=== PATIENT | male | born 1940 | race Caucasian/White ===

== ENCOUNTER → 2017-04-07 | Outpatient (CLI) | payer MEDICARE, BC ==
[~2017-04-07] MED LIST: ADVAIR 100-501 EAC1 IH; ADVAIR HFA 230/12 GM; ALLEGRA; ALPRAZOLAM; AMBIEN CR; ANUSOL-HC21 GM PR; ASPIRIN; ASPIRIN81 MG PO; AVODART0.5 MG PO; BENTYL PO; DIOVAN; FLOMAX0.4 M1 PO; FLOMAX0.4 MG; GLUCOPHAGE500 MG PO; LASIX PO; LEVBID; LIPITOR; LOPID600 MG PO; NEXIUM; NEXIUM PO; PANTOPRAZOLE SO40 MG PO; PERCOCET10; PLAVIX; PLAVIX PO; PREPARATION H C26 GM RC; PROTONIX PO; SINGULAIR; SKELAXIN; ST. JOSEPH ASP325 MG PO; SYMBICORT80 INH; TOPROL XL 50 MG50 MG PO; TYLENOL PM PO; XANAX1 MG PO; [UNRECOGNIZED DRUG - OTHER]; [UNRECOGNIZED DRUG - OTHER] PO; [UNRECOGNIZED DRUG - REMARK]
--- NOTE | ~2017-04-07 | CT2 ---
[facility] A Service of [facility] & [facility] RADIOLOGY TEXT RESULTS PATIENT: EDIL RIVERA [facility] UNIT #: [id number] AGE: [address]: Oc Rg MD SEX: M ORDER DR: [id number] [facility] [address] [place], [place] [address] [id number] O MR#: [id number] Acc #: [id number] NAME: EDIL RIVERA. : 1940 SEX: M STUDY DATE/TIME: 04/07/2017 13:40 UNIT: CCAT ROOM: STUDY DESCRIPTION: CT Abd and Pelv W Cont Attending Physician: Oc Rg Jr., M.D. Referring Physician: Oc Rg Jr., M.D. Ordering Physician: Oc Rg Jr., M.D. Primary Care Physician: Diya Menjivar M.D. MEDICAL IMAGING REPORT This report is preliminary unless electronic signature is present EXAM CT of the abdomen and pelvis with IV contrast media DATE OF STUDY: 04/07/2017 COMPARISON 01/18/2016 HISTORY Inflammatory bowel syndrome with abdominal pain, constipation, difficulty swallowing for 1 year. TECHNIQUE Axial imaging of the abdomen and pelvis was performed with IV contrast and compared directly to a prior scan of 01/18/2016. This CT exam was performed with one or more of the following radiation dose reduction techniques: automatic exposure control, adjustment of mA and/or kV according to patient size, and iterative reconstruction. FINDINGS Lung bases are stable and unremarkable. Scans through the liver parenchyma suggest at least mild hepatic steatosis. There is a calcified lesion within the spleen, unchanged from prior study measuring about 18 mm in size. It appears benign. Gallbladder is absent. Pancreas is normal and the adrenal glands are normal. The right and left kidney are normal. There is colonic diverticulosis. Small bowel appears normal. The distal and terminal ileum are normal. The appendix is not identified. No pelvic masses or fluid collections are seen. 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 The patient does have degenerative changes in the lumbar spine with a [facility] A Service of [facility] & [facility] RADIOLOGY TEXT RESULTS PATIENT: EDIL RIVERA LOCATION: [facility] : 42 UNIT #: [id number] AGE: [address]: Oc Rg MD SEX: M ORDER DR: chronic compression deformity of L3 and marked calcifications of the L3-4 intervertebral disc. CONCLUSION 1. Hepatic steatosis. 2. Status post cholecystectomy. 3. Colonic diverticulosis. 4. Nonvisualization of the appendix. It may have been removed. 5. 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 Dictated by... Job Montanez M.D. THIS IS AN ELECTRONICALLY VERIFIED REPORT Job Montanez M.D. at 04/13/2017 7:15 AM REESE/clarisa TD: 04/09/2017 20:25 JOB #: [id number] MEDICAL IMAGING REPORT Page 1 of 1 COPY
[2017-04-07 23:55] LABS: POC - GFR >60.0 mL/min (>60)
== END | disposition home or self-care (01) ==
LOC: CCAT 12:22
PROVIDERS: Surgery
DX: K59.09 Other constipation (principal); M62.08 Separation of muscle (nontraumatic), other site; R13.10 Dysphagia, unspecified; R10.9 Unspecified abdominal pain; K76.0 Fatty (change of) liver, not elsewhere classified; K57.30 Diverticulosis of large intestine without perforation or abscess without bleeding; M48.56XD Collapsed vertebra, not elsewhere classified, lumbar region, subsequent encounter for fracture with routine healing; Z90.49 Acquired absence of other specified parts of digestive tract
CPT/HCPCS: 74177; 82565; Q9967

== ENCOUNTER 2017-07-08 16:05 | Emergency (ER) | payer MEDICARE, BC ==
--- NOTE | ~2017-07-08 | CR72 ---
[facility]. [facility] A Service of [facility] & [facility] RADIOLOGY TEXT RESULTS PATIENT: EDIL RIVERA LOCATION: SED : 42 UNIT #: [id number] AGE: [address]: Jacob Parry MD SEX: M ORDER DR: [id number] [place] [id number] MR#: [id number] Acc #: [id number] NAME: EDIL RIVERA. : 1940 SEX: M STUDY DATE/TIME: 07/08/2017 16:33 UNIT: SED ROOM: STUDY DESCRIPTION: CR Chest Single View Portable Attending Physician: Jacob Parry M.D. Referring Physician: Diya Menjivar M.D. Ordering Physician: Jacob Parry M.D. Primary Care Physician: Diya Menjivar M.D. MEDICAL IMAGING REPORT This report is preliminary unless electronic signature is present. EXAM AP portable chest 07/08/2017 HISTORY Heartburn with acid reflux. Chest pain with drinking and shortness breath. These symptoms have been present for 1 week. COMPARISON PA and lateral chest radiograph 09/17/2013. CT abdomen with contrast 04/07/2017. FINDINGS Stable mild cardiac enlargement. Clear lungs. No pleural effusion or pneumothorax. IMPRESSION 1. Stable mild cardiomegaly. No acute chest findings. Dictated by... Alessia Beck M.D. THIS IS AN ELECTRONICALLY VERIFIED REPORT Alessia Beck M.D. at 07/09/2017 7:46 PM LLH/dalia TD: 07/09/2017 17:06 JOB #: [id number] MEDICAL IMAGING REPORT Page 1 of 1
--- NOTE | ~2017-07-08 | EKG ---
PATIENT: EDIL RIVERA UNIT #: [id number] Ventricular Rate: 76 BPM Atrial Rate: 76 BPM P-R Interval: 118 ms QRS Duration: 124 ms Q-T Interval: 430 ms QTC Calculation(Bezet): 483 ms P Buckeye: 8 degrees Calculated R [place]keye: 6 degrees Calculated T [place]keye: 4 degrees Diagnosis Line: Normal sinus rhythm Diagnosis Line: Right bundle branch block with repolarization Diagnosis Line: abnormality Diagnosis Line: Abnormal ECG Diagnosis Line: When compared with ECG of 02-OCT-2012 16:15, Diagnosis Line: No significant change was found Diagnosis Line: Confirmed by MACO FIGUEROA MD ([id number]) on 07/12/2017 Diagnosis Line: 7:30:04 PM INTERPRETING MD: CAROLINA FIGUEREDO
[2017-07-08 16:42] LABS: BASOPHIL# 0.1 X10e3 (0-0.3); BASOPHIL% 0.8 % (0-2.5); EOSINOPHIL# 0.1 X10e3 (0-0.7); EOSINOPHIL% 1.5 % (0.0-7.0); HEMATOCRIT 41.1 % (38.0-50.0); LYMPHOCYTE# 2.4 X10e3 (1.0-3.5); LYMPHOCYTE% 28.6 % (17.0-45.0); MEAN CORPUSCULAR HEMOGLOBIN 33.5 PG (28-34); MEAN CORPUSCULAR HGB CONC 34.2 g/dL (30-36); MONOCYTE# 0.7 X10e3 (0-1.0); MONOCYTE% 8.8 % (3.0-12.0); NEUTROPHIL% 60.3 % (40-75); PLATELET COUNT 230 X10e3 (140-420); RED BLOOD COUNT 4.19 X10e (3.90-5.60); RED CELL DISTRIBUTION WIDTH 12.5 % (11.0-15.5); WHITE BLOOD COUNT 8.2 X10e3 (4.0-10.5)
[2017-07-08 16:43] LABS: DIFF IND NO
[2017-07-08 16:57] LABS: INR 1.1; PROTHROMBIN TIME (PATIENT) 12.2 SECONDS (9.5-12.4)
[2017-07-08 17:02] LABS: POC - MYOGLOBIN 55.2 ng/mL (0.0-169.0); POC - TROPONIN <0.05 ng/mL (<=0.05)
[2017-07-08 17:04] LABS: PARTIAL THROMBOPLASTIN TIME 26.6 SECONDS (25.6-38.1)
[2017-07-08 17:05] LABS: ALBUMIN SERUM 4.3 g/dL (3.5-5.0); BILIRUBIN, DIRECT 0.1 mg/dL (0.0-0.2); BILIRUBIN,INDIRECT 0.3 mg/dL (0.0-0.9); BILIRUBIN,TOTAL 0.4 mg/dL (0.2-2.0); CALCIUM SERUM 9.3 mg/dL (8.4-10.2); GLOM FILT RATE Estimated 73.3 mL/min (>60); POTASSIUM 3.9 mmol/L (3.5-5.1); PROTEIN TOTAL SERUM 7.8 g/dL (6.0-8.3)
[2017-07-08 18:27] LABS: POC - CKMB <1.0 ng/mL (0.0-7.9); POC - MYOGLOBIN 43.2 ng/mL (0.0-169.0); POC - TROPONIN <0.05 ng/mL (<=0.05)
== END 2017-07-08 18:47 | disposition home or self-care (01) ==
LOC: SED 16:05
PROVIDERS: Emergency Medicine
DX: K21.9 Gastro-esophageal reflux disease without esophagitis (principal); K29.70 Gastritis, unspecified, without bleeding; E78.5 Hyperlipidemia, unspecified; I10 Essential (primary) hypertension; J44.9 Chronic obstructive pulmonary disease, unspecified; Z86.79 Personal history of other diseases of the circulatory system; Z87.891 Personal history of nicotine dependence; Z90.49 Acquired absence of other specified parts of digestive tract; Z95.1 Presence of aortocoronary bypass graft; Z98.890 Other specified postprocedural states; Z88.8 Allergy status to other drugs, medicaments and biological substances; Z79.899 Other long term (current) drug therapy
CPT/HCPCS: 36415; 71010; 80048; 80076; 82553; 83874; 83880; 84484; 85025; 85610; 85730; 93005; 96361; 96374; 99284; C9113